=== PATIENT | male | born 1965 | race Caucasian/White ===

== ENCOUNTER → 2017-02-05 | Outpatient (CLI) | payer BC ==
[~2017-02-05] MED LIST: ATENOLOL50 MG PO; FLEXERIL5 MG PO; FLOMAX0.4 MG PO; GABAPENTIN300 MG PO; NAPROSYN500 MG PO; NORCO 5/3251 TABLET PO; PERCOCET 5/31 TABLET PO; TORADOL10 MG PO; ZOFRAN ODT4 MG PO
== END | disposition home or self-care (01) ==
LOC: CDC 10:44
DX: Z01.810 Encounter for preprocedural cardiovascular examination (principal); M54.16 Radiculopathy, lumbar region; I45.4 Nonspecific intraventricular block
CPT/HCPCS: 93000

== ENCOUNTER 2017-07-02 06:24 | Emergency (ER) | payer BC ==
[~2017-07-02] VITALS: Ht 175.3 cm; Wt 112.9 kg
[2017-07-02 06:38] LABS: HEMATOCRIT 41.1 % (38.0-50.0); HEMOGLOBIN 14.6 G/DL (12.5-16.6); MCH 31.7 PG (29.0-34.0); MCHC 35.5 G/DL (30.0-36.0); MCV 89.2 FL (86-99); PLATELET COUNT 283 K/uL (156-360); RBC DIS.WIDTH-CV 11.8 % (11.8-14.6); RBC DIS.WIDTH-SD 38.2 % (39-53); RED BLOOD COUNT 4.61 M/uL (4.00-5.50); WHITE BLOOD COUNT 14.9 K/uL (4.1-10.2)
[2017-07-02 06:49] LABS: CHLORIDE 106 mEq/L (99-109); POTASSIUM 4.6 mEq/L (3.7-5.4); SODIUM 139 mEq/L (136-147)
[2017-07-02 06:51] LABS: GLUCOSE 172 mg/dL (70-99)
[2017-07-02 06:54] LABS: CREATININE 1.4 mg/dL (0.6-1.3); GFR ESTIMATE (CALCULATED) 56 mL/min/ (58.99-99999)
[2017-07-02 06:55] LABS: UREA NITROGEN (BUN) 25 mg/dL (9-23)
[2017-07-02 08:55] LABS: APPEARANCE CLEAR ((CLEAR)); BILIRUBIN NEGATIVE; BLOOD NEGATIVE; COLOR YELLOW ((YELLOW)); GLUCOSE (STRIP) NEGATIVE; KETONES NEGATIVE; LEUKOCYTES NEGATIVE; NITRITE NEGATIVE; PROTEIN (STRIP) NEGATIVE; SPECIFIC GRAVITY 1.025 (1.000-1.030); UCUL ADDED? NO; UROBILINOGEN 0.2 MG/DL (0.2-1.0)
[2017-07-02] MEDS ORDERED: FLOMAX0.4 MG PO (10:11)
[2017-07-02] MEDS ORDERED: PERCOCET 5/31 TABLET PO (10:11)
[2017-07-02] MEDS ORDERED: ZOFRAN ODT4 MG PO (10:11)
[2017-07-02] MEDS ORDERED: TORADOL10 MG PO (10:11)
[2017-07-02 10:38] VITALS: BP 140/89
== END 2017-07-02 10:40 | disposition home or self-care (01) ==
LOC: EME 06:24
DX: N20.2 Calculus of kidney with calculus of ureter (principal); Z87.442 Personal history of urinary calculi
CPT/HCPCS: 74176; 80048; 81003; 85027; 99281; 99285; J1885; J2405; J7030

== ENCOUNTER 2017-07-15 10:52 | Day surgery (SDC) | payer BC ==
[~2017-07-15] VITALS: Ht 175.3 cm; Wt 115.6 kg
[~2017-07-15 10:52] MED LIST changes: +ZYRTEC10 M3 PO
[2017-07-15 11:37] VITALS: BP 126/75
[2017-07-15 13:55] VITALS: BP 152/88
[2017-07-15 14:52] VITALS: BP 138/71
== END 2017-07-15 15:30 | disposition home or self-care (01) ==
LOC: SDC 10:52
DX: N20.1 Calculus of ureter (principal); I10 Essential (primary) hypertension; G47.30 Sleep apnea, unspecified
CPT/HCPCS: C2625; J0690; J1885; J2250; J2405; J3010